=== PATIENT | male | born 1960 | race Caucasian/White ===

== ENCOUNTER 2021-12-29 08:36 | Outpatient (CLI) | payer BC, SELFPAY ==
[2021-12-29 13:01] LABS: Chloride* 104 mmol/L (96-114); Sodium* 143 mmol/L (135-149)
[2021-12-29 13:04] LABS: Blood Urea Nitrogen* 19 mg/dL (7-30); Carbon Dioxide* 28 mmol/L (20-32); Cholesterol* 158 mg/dL (90-199); Creatinine* 0.8 mg/dL (0.5-1.5); Estimated Glomerular Filt Rate 101 ml/min
[2021-12-29 13:05] LABS: Calcium* 10.1 mg/dL (8.4-10.6); Glucose* 105 mg/dL (60-115); HDL Cholesterol* 48 mg/dL (>=40); LDL Cholesterol Calculated 89 mg/dL (<100); Triglycerides* 104 mg/dL (40-149)
[2021-12-29 13:35] LABS: PSA Diagnostic* 4.14 ng/mL (0.10-4.00)
== END 2021-12-29 08:37 | disposition home or self-care (01) ==
PROVIDERS: PCP Family Medicine; Visit Provider Family Medicine
DX: Z00.00 Encounter for general adult medical examination without abnormal findings (principal); R97.20 Elevated prostate specific antigen [PSA]; E78.5 Hyperlipidemia, unspecified; R10.32 Left lower quadrant pain; Z13.1 Encounter for screening for diabetes mellitus; Z12.5 Encounter for screening for malignant neoplasm of prostate
CPT/HCPCS: 80048; 80061; 84153; 87086

== ENCOUNTER 2022-02-05 07:31 | Outpatient (CLI) | payer BC, SELFPAY ==
[2022-02-05 07:51] LABS: Creatinine* 0.9 mg/dL (0.5-1.5); Estimated Glomerular Filt Rate 98 ml/min
--- NOTE | 2022-02-05 08:00 | CRLHL7_ITS ---
For Patients: As a result of the 21st Century Cures Act, medical imaging exams and procedure reports are released immediately into your electronic medical record. You may view this report before your referring provider. If you have questions, please contact your health care provider. INDICATION: ABDOMINAL PAIN, H/X KIDNEY STONES TECHNIQUE: CT abdomen and pelvis urogram without and with 93 cc Isovue 370 intravenous contrast. Contrast images were obtained in the nephrographic and delayed phases. COMPARISON: 12/30/2009 FINDINGS: KIDNEYS: The unenhanced images demonstrate a large stone within the left renal pelvis measuring approximately 2.2 cm in the mid left kidney and 1.7 cm within the lower pole of the left kidney. Smaller stones are present within the upper pole collecting system of the left kidney measuring up to 8 millimeters. Smaller stones are present elsewhere at the corticomedullary junction measuring 3 millimeters. Punctate stones are present within the midportion of the right kidney measuring 4 millimeters and within the lower pole of the right kidney measuring 3 millimeters. The kidneys are normal in caliber and demonstrate normal uptake and excretion of IV contrast. No solid masses. Simple cortical cysts are present bilaterally measuring up to 1.5 cm. The renal collecting systems and ureters fill normally with contrast around the stones without suspicion for a transitional cell lesion. URINARY BLADDER: Multiple large bladder stones are present measuring up to 13 millimeters within the posterior/right paramidline bladder. Bladder wall thickening is present measuring up to 6 millimeters. The prostate is enlarged with lobular mass effect upon the inferior bladder. The lung bases are clear. No suspicious intrahepatic lesion. Calcified splenic granulomas. Adrenal glands normal. Normal gallbladder. Normal pancreas. Vascular calcifications. No aneurysm. No free air or free fluid. No adenopathy. No bowel obstruction or inflammatory change. No fracture. OTHER: GI tract is normal in caliber and appearance. The liver is normal in caliber and attenuation. Spleen, pancreas, and adrenal glands are normal. No mass or adenopathy. IMPRESSION: 1. Staghorn calculus left kidney. Large burden of calcification within the left renal pelvis/collecting system. No hydronephrosis. Small right renal stones. 2. Multiple large bladder stones. Bladder wall thickening. Lobular enlargement of the superior prostate. Please note that all CT scans at this facility use dose modulation, iterative reconstruction, and/or weight-based dosing when appropriate to reduce radiation dose to as low as reasonably achievable. Dictated by Emmett Obrien MD @ 02/05/2022 12:46:19 PM (Electronically Signed)
--- NOTE | 2022-02-05 11:51 | W.ANESCHARGE ---
Anesthesia Charges Start Date/Time Anesthesia Start Date: 02/05/22 Anesthesia Start Time: 11:05 Stop Date/Time Anesthesia Stop Date: 02/05/22 Anesthesia Stop Time: 11:45 Summary Emergency: No
--- NOTE | 2022-02-05 11:53 | W.ANESCHARGE ---
Anesthesia Charges Start Date/Time Anesthesia Start Date: 02/05/22 Anesthesia Start Time: 11:05 Stop Date/Time Anesthesia Stop Date: 02/05/22 Anesthesia Stop Time: 11:45 Summary Emergency: No
== END 2022-02-05 07:32 | disposition home or self-care (01) ==
LOC: CT 07:31
PROVIDERS: PCP Family Medicine; Visit Provider Surgery
DX: R10.9 Unspecified abdominal pain (principal); N20.0 Calculus of kidney; N28.89 Other specified disorders of kidney and ureter; N21.0 Calculus in bladder
CPT/HCPCS: 36415; 45385; 74178; 811; 82565; 88305; J2704; Q9967

== ENCOUNTER 2022-05-10 15:02 | Outpatient (CLI) | payer BC, SELFPAY | END 2022-05-10 15:03 | disposition home or self-care (01) | LOC: LONREF 15:03 | PROVIDERS: PCP Family Medicine; Visit Provider Nurse Practitioner Family | DX: Z01.818 Encounter for other preprocedural examination (principal); E78.5 Hyperlipidemia, unspecified | CPT/HCPCS: 80048 ==

== ENCOUNTER 2022-07-05 15:34 | Outpatient (CLI) | payer BC, SELFPAY | END 2022-07-05 15:35 | disposition home or self-care (01) | LOC: LONREF 15:34 | PROVIDERS: PCP Family Medicine; Visit Provider Nurse Practitioner Family | DX: Z01.818 Encounter for other preprocedural examination (principal) | CPT/HCPCS: 80048 ==

== ENCOUNTER 2022-12-19 12:37 | Outpatient (CLI) | payer BC, SELFPAY ==
--- NOTE | 2022-12-19 13:00 | CRLHL7_ITS ---
For Patients: As a result of the Century Cures Act, medical imaging exams and procedure reports are released immediately into your electronic medical record. You may view this report before your referring provider. If you have questions, please contact your health care provider. INDICATION: RLQ PAIN TECHNIQUE: CT abdomen and pelvis without contrast, stone protocol. COMPARISON: CT urogram February 05, 2022 FINDINGS: Kidney/ureters: Obstructing calculus within the right proximal to mid ureter, measuring 1.2 cm. This results in severe hydronephrosis and periureteral inflammation. No left-sided hydronephrosis. There are additional bilateral intrarenal calculi with the largest on the left measuring 7 mm. Unremarkable appearing bladder. Liver/gallbladder/bile ducts: The liver is normal in size, shape and attenuation. Gallbladder is normal without visualized stones or inflammation. No biliary dilatation. Spleen/pancreas/adrenal glands: The spleen, adrenal glands and pancreas are within normal limits. GI tract: No evidence of bowel obstruction or inflammation. The appendix is not discretely visualized. Vasculature: Ectatic abdominal aorta with moderate atherosclerotic cyst. Abdominal wall/omentum/peritoneum: No free air or significant free fluid. No mass or inflammation. Lymph nodes: No lymphadenopathy. Pelvis: Unremarkable pelvis. Lower chest: Unremarkable. IMPRESSION: Obstructing calculus within the right proximal to mid ureter, measuring 1.2 cm. This results in severe hydronephrosis and periureteral inflammation. Additional nonobstructing bilateral intrarenal calculi with the largest on the left measuring 7 mm. Recommend emergent urological consult. Findings discussed with Dr. Britton Fowler at 1:47 p.m.. Please note that all CT scans at this facility use dose modulation, iterative reconstruction, and/or weight-based dosing when appropriate to reduce radiation dose to as low as reasonably achievable. Dictated by Tello Najera MD @ 12/19/2022 1:49:03 PM (Electronically Signed)
== END 2022-12-19 12:38 | disposition home or self-care (01) ==
LOC: CT 12:38
PROVIDERS: PCP Family Medicine; Visit Provider Family Medicine
DX: R10.31 Right lower quadrant pain (principal); N20.1 Calculus of ureter; N20.0 Calculus of kidney
CPT/HCPCS: 74176; 87086

== ENCOUNTER 2023-04-23 08:45 | Outpatient (CLI) | payer BC, SELFPAY ==
--- OUTSIDE RECORDS SUMMARY | 2023-04-23 08:50 | XMS_ITS | Clinical Summary ---
Author Name Unknown Organization [employer] [facility] 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 0 Active omeprazole 20 mg tablet Take 20 mg by mouth once daily if needed (prn). 0 Active tamsulosin (FLOMAX) 0.4 mg capsule Take 0.4 mg by mouth at bedtime. 0 Active finasteride (PROSCAR) 5 mg tablet Take 5 mg by mouth every Saturday, Saturday and Saturday. Takes at bedtime q MWF 0 06/05/2022 Active aspirin (ECOTRIN) 81 mg enteric coated tablet Take 81 mg by mouth every Saturday, Saturday and Saturday. Takes at Bedtime q MWF 0 08/05/2022 Active acetaminophen (Tylenol Extra Strength) 500 mg tablet Take 500 mg by mouth every 6 hours if needed for Pain. Max acetaminophen dose: 4000mg in 24 hrs. 0 Active HYDROcodone-acetam inophen (5-325 mg/tablet)Indicati ons:Renal stone Take 1-2 Tablets by mouth every 6 hours if needed for Pain. Max acetaminophen dose: 4000 mg in 24 hrs. 10 Tablet 0 01/14/2023 Active Active Problems Problem Noted Date Diagnosed Date Renal stone Family History Medical History Relation Name Comments Good Health Father Good Health Mother Relation Name Status Comments Father Mother Social History Tobacco Use Types Packs/Day Years Used Date Smoking Tobacco: Every Day Cigarettes Tobacco Cessation:Ready to Q uit: Not Asked; Counseling Given: Not Answered Alcohol Use Standard Drinks/Week Comments Not Asked 0 (1 standard drink = 0.6 oz pur e alcohol) Social Connections Answer Date Recorded Frequency of Communication with Friends and Fami ly 0 12/21/2022 Financial Resource Strain Answer Date R ecorded Difficulty of Paying Living Expenses 3 12/21/2022 Difficulty of Paying Living Expenses Not on file 12/21/2022 Food Insecurity Answer Date Recorded Worried About Running Out of Food in the Last Ye ar 1 12/21/2022 Transportation Needs Answer Date Record ed Lack of Transportation (Medical) 1 12/21/2022 Housing Stability Answer Date Recorded Unable to Pay for Housing in the Last Year 1 12/21/2022 Sex and Gender Information Value Date Recorded Sex Assigned at Not on file Gender Identity Not on file Sexual Orientation Not on file Obstetrics History Last Filed Vital Signs Vital Sign Reading Time Taken Comments Blood Pressure 144/85 01/14/2023 3:40 PM [facility] Pulse 84 01/14/2023 3:40 PM [facility] Temperature 37.1 ??C (98.8 ??F) 01/14/2023 2:34 PM [facility] Respiratory Rate 16 01/14/2023 3:40 PM [facility] Oxygen Saturation 96% 01/14/2023 3:40 PM [facility] Inhaled Oxygen Concentration - - Weight 87.1 kg (192 lb 1.6 oz) 01/14/2023 12:03 PM [facility] Height 175.3 cm (5' 9) 01/14/2023 12:03 PM [facility] Body Mass Index 28.37 01/14/2023 12:03 PM [facility] Plan of Treatment Health Maintenance Due Date Last Done Comments COVID-19 vaccine series (#1) 03/30/1962 Pneumococcal series for age 6-64 (1 of 2 - PCV) 1967 Tdap 1972 Depression screening for age 12+ 1973 HIV for age 15-65 1976 BMI (ht and wt on same day) for age 18+ 09/28/1979 Hepatitis C screening for age 18-79 09/28/1979 Tetanus booster 1981 Colonoscopy through age 75 2006 Lipids for age 45-75 2006 Zoster (shingles) series for age 50+ (1 of 2) 07/20/20 12 Influenza for age 50-64 11/09/2022 Medical Devices Implanted Type Area Atmospheric Physics Professor Device Identifier Shelf Expiration Date Model / Serial / Lot Stent Uret [id number] Contour - [id number] Implanted:Qty: 1 on 01/14/2023 by Wesley Schmidt MD at [facility] Right: [facility]reter [facility] 07/23/2025 [id number] / / [id number] Explanted Type Area Atmospheric Physics Professor Device Identifier Shelf Expiration Date Model / Serial / Lot Stent Uret [id number] Contour - [id number] Implanted:Qty: 1 on 12/22/2022 by Wesley Schmidt MD at [facility] Explanted:Qty: 1 on 01/14/2023 by Wesley Schmidt MD at [facility] 07/11/2025 [id number] / / [id number] Advance Directives Latest Code Status on File Code Status Date Activated Date Inactivated Comments Full Code 01/14/2023 12:25 PM 01/14/2023 5:51 PM Question Answer Comments Code Status Discussion: Unable to Assess Preferences, Provider to review later Code Status History Code Status Date Activated Date Inactivated Comments Full Code 12/23/2022 8:54 AM 12/23/2022 1:43 PM Question Answer Comments Code Status Discussion: Reviewed Preferences Full Code 12/22/2022 8:24 AM 12/23/2022 8:54 AM Question Answer Comments Code Status Discussion: Unable to Assess Preferences, Provider to review later Full Code 12/21/2022 6:32 PM 12/22/2022 8:24 AM Question Answer Comments Code Status Discussion: Reviewed Preferences Full Code 07/31/2022 6:57 AM 08/01/2022 3:30 PM Question Answer Comments Code Status Discussion: Unable to Assess Preferences, Provider to review later Care Teams Meat Department Manager Relationship Specialty Start Date End Date Britton Fowler MD PCP - General Family Practice 05/21/22
== END 2023-04-23 08:46 | disposition home or self-care (01) ==
PROVIDERS: PCP Family Medicine; Visit Provider Family Medicine
DX: E78.5 Hyperlipidemia, unspecified (principal); N40.0 Benign prostatic hyperplasia without lower urinary tract symptoms; R97.20 Elevated prostate specific antigen [PSA]; Z13.1 Encounter for screening for diabetes mellitus
CPT/HCPCS: 80048; 80061; 84153

== ENCOUNTER 2023-12-18 11:01 | Outpatient (CLI) | payer BC, SELFPAY ==
--- OUTSIDE RECORDS SUMMARY | 2023-12-18 11:05 | XMS_ITS | Clinical Summary ---
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 Active omeprazole 20 mg tablet Take 20 mg by mouth once daily if needed (prn). Active tamsulosin (FLOMAX) 0.4 mg capsule Take 0.4 mg by mouth two times daily. Active finasteride (PROSCAR) 5 mg tablet Take 5 mg by mouth every Saturday, Saturday and Saturday. Takes at bedtime q MWF 3 Active aspirin (ECOTRIN) 81 mg enteric coated tablet Take 81 mg by mouth every Saturday, Saturday and Saturday. Takes at Bedtime q MWF 0 3 Active acetaminophen (Tylenol Extra Strength) 500 mg tablet Take 500 mg by mouth every 6 hours if needed for Pain. Max acetaminophen dose: 4000mg in 24 hrs. Active cefdinir (OMNICEF) 300 mg capsuleIndicati ons:Pyelonephri tis Take 1 Capsule (300 mg) by mouth two times daily for 14 days. 28 Capsule 4 12/23/19 24 Active HYDROcodone-ricardo taminophen (5-325 mg/tablet)Indic ations:Renal stone Take 1-2 Tablets by mouth every 6 hours if needed for Pain. Max acetaminophen dose: 4000 mg in 24 hrs. 10 Tablet 3 09/28/20 24 Discontinued(P harmacist change per medication history (E-cancel not sent)) Active Problems Problem Noted Date Diagnosed Date Hydronephrosis with urinary obstruction due to ureteral calculus 12/07/2023 Sepsis 12/07/2023 UTI (urinary tract infection) 12/07/2023 GERD (gastroesophageal reflux disease) BPH (benign prostatic hyperplasia) 12/07/2023 HLD (hyperlipidemia) 12/07/2023 JOHANN (acute kidney injury) Encounters Date Type Department Care Team Description 12/07/2023 6:37 PM CDT Anesthesia Event [address] [address] Oriana Ghosh MD Tebrake, Dean William, CRNA 12/07/2023 6:30 PM CDT - 12/07/2023 7:27 PM CDT Surgery [address] [address] Wesley Schmidt MD CYSTOSCOPY PLACEMENT URETERAL STENT 12/07/2023 2:29 PM CDT - 12/09/2023 1:35 PM CDT Hospital Encounter [address] [address] Celso Prieto MD Le, MD Dm Mae, Bishnu Shi, Wolf Sullivan, Calculus of proximal left ureter (Primary Dx); Pyuria; Leukocytosis, unspecified type; Pyelonephritis; Kidney stone Discharge Disposition: Home Self Care 12/07/2023 Travel from Last 3 Months Family History Medical History Relation Name Comments [...] Sign Reading Time Taken Comments Blood Pressure 121/82 12/09/2023 4:30 AM CDT Pulse 70 12/09/2023 4:30 AM CDT Temperature 36.3 ??C (97.3 ??F) 12/09/2023 4:30 AM CD T Respiratory Rate 18 12/09/2023 4:30 AM CDT Oxygen Saturation 94% 12/09/2023 4:30 AM CDT Inhaled Oxygen Concentration - - Weight 87.5 kg (192 lb 12.8 oz) 12/09/2023 6:18 AM CDT Height 175.3 cm (5' 9) 12/07/2023 1:36 PM CDT Body Mass Index 28.47 12/07/2023 1:36 PM CDT Plan of Treatment Upcoming Encounters Date Type Department Care Team (Latest Contact Info) Description 12/24/2023 10:03 AM CDT Hospital Encounter [facility] [address] [place] [address] Wesley Schmidt MD [facility] [place] [address] 12/24/2023 10:03 AM CDT - 12/24/2023 11:37 AM CDT Surgery [facility] [address] [place] [address] Wesley Schmidt MD [address] [place], [place] [id number] CYSTOSCOPY, LEFT URETEROSCOPY, HOLMIUM LASER LITHOTRIPSY Scheduled Procedures Name Priority Associated Diagnoses Date/Ti hi CYSTOSCOPY URETEROSCOPY LASER Elective N20.0- kidney stones 12/24/2023 10:03 AM CDT CYSTOSCOPY PLACEMENT URETERA L STENT Elective N20.0- kidney stones 12/24/2023 10:03 AM CDT Health Maintenance Due Date Last Done Comments Pneumococcal series for age 6-64 (1 of [...] series for age 50+ (1 of 2) 09/28/19 12 COVID-19 vaccine series (2023- season) 4 Influenza for age 50-64 11/10/2023 Medical Devices Implanted Type Area Pump Operator Device Identifier Shelf Expiration Date Model / Serial / Lot Stent Uret [id number] Contour - [id number] Implanted:Qty: 1 on 01/14/2023 by Wesley Schmidt MD at [facility] Right: [facility] 07/23/2025 [id number] / / [id number] Stent Uret [id number] Contour - [id number] Implanted:Qty: 1 on 12/07/2023 by Wesley Schmidt MD at [facility] Left: [facility]reter [facility] 08/06/2026 [id number] / / [id number] Explanted Type Area Pump Operator Device Identifier Shelf Expiration Date Model / Serial / Lot Stent Uret [id number] Contour - [id number] Implanted:Qty: 1 on 12/22/2022 by Wesley Schmidt MD at [facility] Explanted:Qty: 1 on 01/14/2023 by Wesley Schmidt MD at [facility] 07/11/2025 [id number] / / [id number] Procedures Procedure Name Priority Date/Time Associated Diagnosis Comments PROCALCITONIN Today 12/09/2023 8:56 AM CDT C-REACTIVE PROTEIN Today 12/09/2023 8: 56 AM CDT WHITE BLOOD COUNT Today 12/09/2023 8:5 6 AM CDT GLUCOSE METER Timed 12/08/2023 9:05 PM CDT PLATELET COUNT Early AM 12/08/2023 7:45 AM CDT HEMOGLOBIN Early AM 12/08/2023 7:45 AM CDT WHITE BLOOD COUNT Early AM 12/08/2023 7:4 5 AM CDT CREATININE Early AM 12/08/2023 7:45 AM CDT LACTATE VENOUS STAT 12/07/2023 8:11 PM CDT XR RETROGRADE PYELOGRAM W/WO KUB STAT 12/07/2023 7:03 PM CDT SUPRAGLOTTIC-LMA Routine 12/07/2023 6:51 PM CDT CYSTOSCOPY PLACEMENT URETERAL STENT 12/07/2023 6:31 PM CDT Ureteral stone CT ABDOMEN PELVIS STONE PROTOCOL WO STAT 12/07/2023 4:07 PM CDT RED CELL MORPHOLOGY STAT 12/07/2023 2 :59 PM CDT PLATELET ESTIMATE STAT 12/07/2023 2:5 9 PM CDT MANUAL DIFFERENTIAL STAT 12/07/2023 2 :59 PM CDT CBC WITH AUTO DIFFERENTIAL STAT 12/07/2023 2:59 PM CDT CBC WITH AUTO DIFFERENTIAL STAT 12/07/2023 2:59 PM CDT BASIC METABOLIC PANEL STAT 12/07/2023 2:59 PM CDT URINE CULTURE JOSE 12/07/2023 1:44 PM CDT URINALYSIS MICROSCOPIC STAT 1:44 PM CDT UA W/ SEDIMENT EXAM REFLEXED PER CRITERIA STAT 12/07/2023 1:44 PM CDT SCAN-CARDIAC STRIP 12/07/2023 12 :00 AM CDT from Last 3 Months Results * (ABNORMAL) PROCALCITONIN (12/09/2023 8:56 AM CDT) PROCALCITONIN 0.85(H) ng/ml 12/09/2023 9:47 AM CDT [facility] Blood BLOOD SPECIMEN / Unknown Venipuncture / Unknown 12/09/2023 8:56 AM CDT 12/09/2023 9:08 AM CDT Narrative [facility] - 12/09/2023 9:47 AM CDT Procalcitonin for initial assessment of Lower Respiratory Tract Infection: Results Interpretation <0.10 ng/mL Antibiotic therapy strongly discoraged. ??Indicates absent of bacterial infection. * 0.10 - 0.25 ng/mL Antibiotic therapy discouraged. ??Bacterial infection unlikely. * 0.26 - 0.50 ng/mL Antibiotic therapy encouraged. ??Bacterial infection possible. >0.50 ng/mL Antibiotic therapy strongly encouraged. ??Suggestive of presence of bacterial infection. *Antibiotic therapy should be considered regardless of PCT result if the patient is clinically unstable, is at high risk for adverse outcome, has strong evidence of bacterial pathogen, or the clinical context indicates antibiotic therapy is warranted. ??If antibiotics are withheld, reassess if symptoms persist/worsen and/or repeat PCT measurement within 6-24 hours. ? In order to assess treatment success and to support a decision to discontinue antibiotic therapy, follow up samples should be tested once every 1-2 days, based upon physician discretion taking into account patient's evolution and progress. Procalcitonin for initial assessment of severe sepsis risk: Results Interpretation <0.5 ng/ml A PCT level below 0.5 ng/ml on the first day of ICU admission is associated with a low risk for progression to severe sepsis and/or septic shock. > 2.0 ng/mL A PCT level above 2.0 ng/mL on the first day of ICU admission is associated with a high risk for progression to severe sepsis and/or septic shock. Note: Concentrations < 0.5 ng/mL do not exclude an infection, on account of localized infections (without systemic signs) which can be associated with such low concentrations, or a systemic infection in its initial stages(< 6 hours). Furthermore, increased procalcitonin can occur without infection. PCT concentrations between 0.5 and 2.0 ng/mL should be interpreted taking into account the patient's history. It is recommended to retest PCT within 6-24 hours if any concentrations < 2 ng/mL are obtained. Wolf Argueta DO SEND OUTS Performing Organization Address [facility] de Phone Number [address] [address] * (ABNORMAL) WHITE BLOOD COUNT (12/09/2023 8:56 AM CDT) Only the most recent of2 resultswithin the time period is included. [facility] Signature WHITE BLOOD COUNT 12.8(H) 4.5 - 11.0 thou/cu mm 12/09/2023 9:11 AM CDT [facility] NRBC 0.0 % 12/09/2023 9:11 AM CDT [facility] ABS NRBC 0.0 thou /cu mm 12/09/2023 9:11 AM CDT [facility] Blood BLOOD SPECIMEN / Unknown Venipuncture / Unknown 12/09/2023 8:56 AM CDT 12/09/2023 9:09 AM CDT Wolf Gallitotoña Scotten HEMATOLOGY Performing Organization Address [facility] de Phone Number [address] [address] * (ABNORMAL) C-REACTIVE PROTEIN (12/09/2023 8:56 AM CDT) C-REACTIVE PROTEIN 14.5(H) <0.5 mg/dL 12/09/2023 9:35 AM CDT [facility] Blood BLOOD SPECIMEN / Unknown Venipuncture / Unknown 12/09/2023 8:56 AM CDT 12/09/2023 9:09 AM CDT Wolf Gallito Argueta DO CHEMISTRY Performing Organization Address City/[facility] Co de Phone Number [address] [address] * (ABNORMAL) GLUCOSE METER (12/08/2023 9:05 PM CDT) GLUCOSE METER 117(H) 65 - 100 mg/dL 12/08/2023 9:14 PM CDT [facility] Blood BLOOD SPECIMEN / Unknown 12/08/2023 9:05 PM CDT 12/08/2023 9:14 PM CDT Bishnu Chaidez DO CHEMISTRY Performing Organization Address [facility] Co de Phone Number [address] [address] * PLATELET COUNT (12/08/2023 7:45 AM CDT) PLATELET COUNT 225 140 - 440 thou/cu mm 12/08/2023 8:06 AM CDT [facility] MPV 9.6 6.5 - 11.0 fL 12/08/2023 8:06 AM CDT [facility] Blood BLOOD SPECIMEN / Unknown Venipuncture / Unknown 12/08/2023 7:45 AM CDT 12/08/2023 7:50 AM CDT Richard Bender MD HEMATOLOGY Performing Organization Address City/[facility] Co de Phone Number [address] [address] * (ABNORMAL) HEMOGLOBIN (12/08/2023 7:45 AM CDT) HEMOGLOBIN 13.4(L) 13.5 - 17.5 g/dL 12/08/2023 8:06 AM CDT [facility] MCV 93 80 - 100 fL 12/08/2023 8:06 AM CDT [facility] Blood BLOOD SPECIMEN / Unknown Venipuncture / Unknown 12/08/2023 7:45 AM CDT 12/08/2023 7:50 AM CDT Richard Bender MD HEMATOLOGY Performing Organization Address City/[facility] Co de Phone Number [address] [address] * (ABNORMAL) CREATININE (12/08/2023 7:45 AM CDT) Pathologist [facility] eGFR 64(L) >90 mL/min/1.7 3m2 12/08/2023 8:15 AM CDT [facility] Comment:As of 2021, eG FR is calculated by the CKD-EPI creatinine equation without race adjustment. ??eGFR can be influenced by muscle mass, exercise, and diet. ??The reported eGFR is an estimation only and is only applicable if the renal function is stable. CREATININE 1.27(H) 0.70 - 1.20 mg/dL 12/08/2023 8:15 AM CDT [facility] Blood BLOOD SPECIMEN / Unknown Venipuncture / Unknown 12/08/2023 7:45 AM CDT 12/08/2023 7:50 AM CDT Richard Bender MD CHEMISTRY Performing Organization Address City/[facility]/ZIP Co de Phone Number [address] [address] * LACTATE VENOUS (12/07/2023 8:11 PM CDT) LACTATE,VENOUS 1.3 0.5 - 2.0 mmol/L 12/07/2023 8:33 PM CDT [facility] Blood BLOOD SPECIMEN / Unknown Venipuncture / Unknown 12/07/2023 8:11 PM CDT 12/07/2023 8:15 PM CDT Richard Bender MD CHEMISTRY [facility] [address] [place] [address] * XR RETROGRADE PYELOGRAM W/WO KUB (12/07/2023 7:03 PM CDT) Anatomical Region Laterality Modality KIDNEYS, Abdomen Digital Radiogr aphy 12/07/2023 7:31 PM CDT Narrative 12/07/2023 7:31 PM CDT For Patients: ??As a result of the Cures Act, medical imaging exams and procedure reports are released immediately into your electronic medical record. ??You may view this report before your referring provider. ??If you have questions, please contact your health care provider. Indication: Flank pain. Technique: Intraoperative fluoroscopic assistance, 1 view. Comparison: CT abdomen and pelvis from the same day. Findings/Impression: A single spot fluoroscopic image demonstrates a left ureteral stent appearing in good position. The tip of a cystoscope is noted in the lower pelvis. 30 seconds of fluoroscopy time was utilized for this procedure. Dictated by Angel Hill MD @ 12/07/2023 7:31:10 PM (Electronically Signed) Procedure Note Angel Hill MD - 12/07/2023 For Patients: As a result of the Cures Act, medical imagingexams and procedure reports are released immediately into your electronicmedical record. You may view this report before your referring provider.If you have questions, please contact your health care provider. Indication: Flank pain. Technique: Intraoperative fluoroscopic assistance, 1 view. Comparison: CT abdomen and pelvis from the same day. Findings/Impression: A single spot fluoroscopic image demonstrates a left ureteral stentappearing in good position. The tip of a cystoscope is noted in the lowerpelvis. 30 seconds of fluoroscopy time was utilized for this procedure. Dictated by Angel Hill MD @ 12/07/2023 7:31:10 PM (Electronically Signed) Wesley Schmidt MD GENERAL IMAGIN G * HCHG MASK PR5 (12/07/2023 6:51 PM CDT) Narrative Jose Queen CRNA - 12/07/2023 6:51 PM CDT Jose Queen CRNA ? 12/07/2023 ??6:51 PM Procedure: Supraglottic Patient location during procedure: OR Supraglottic Airway Properties Mask Ventilation: easy Type: unique Tube Size: 5 Insertion Attempts: 1 Placement Verification: auscultation and CO2 detection Assessment Assessment: atraumatic and dentition unchanged Cuff Volume: 5 Oriana Ghosh MD ANESTHESIA PX NOTE ORDERABLES * CT ABDOMEN PELVIS STONE PROTOCOL WO (12/07/2023 4:07 PM CDT) Anatomical Region Laterality Modality Abdomen, Pelvis, AORTA, LIVER, SPLEEN Computed Tomography 12/07/2023 4:39 PM CDT Impressions 12/07/2023 4:39 PM CDT 1. Moderate left hydronephrosis with 3 adjacent stones in the left mid ureter measuring up to 1 cm. Please note that all CT scans at this facility use dose modulation, iterative reconstruction, and/or weight-based dosing when appropriate to reduce radiation dose to as low as reasonably achievable. Dictated by Cris Randall MD @ 12/07/2023 4:39:59 PM (Electronically Signed) Narrative 12/07/2023 4:39 PM CDT For Patients: ??As a result of the Century Cures Act, medical imaging exams and procedure reports are released immediately into your electronic medical record. ??You may view this report before your referring provider. ??If you have questions, please contact your health care provider. INDICATION: Flank pain TECHNIQUE: CT abdomen and pelvis without contrast. COMPARISON: CT 08/01/2022 FINDINGS: Lower chest: Unremarkable. Liver: Normal in size and attenuation. No suspicious masses. Gallbladder and bile ducts: No stones or inflammation. No biliary dilatation. Pancreas: Unremarkable. No mass or inflammation. Spleen: Splenic granulomas. Adrenal glands: Normal in size. No nodules. Kidneys: Nonobstructing left-sided renal calculi as well as on the right. No hydronephrosis on the right. Moderate left hydronephrosis and hydroureter with 3 adjacent left mid renal calculi. Proximally 4 millimeter stone with an adjacent 1 centimeters stone followed by an additional 9 millimeter stone. GI tract: Small hiatal hernia. Gaseous distention of the colon the bowel otherwise is unremarkable. Normal appendix. Vasculature: Abdominal aorta is normal in caliber. Lymph nodes: No lymphadenopathy. Peritoneum/Abdominal Wall: Small fat containing inguinal hernias. Pelvis: Unremarkable. No pelvic masses. Bones: Unremarkable for age. Procedure Note Cris Randall MD - 12/07/2023 For Patients: As a result of the Century Cures Act, medical imagingexams and procedure reports are released immediately into your electronicmedical record. You may view this report before your referring provider.If you have questions, please contact your health care provider. INDICATION: Flank pain TECHNIQUE: CT abdomen and pelvis without contrast. COMPARISON: CT 08/01/2022 FINDINGS: Lower chest: Unremarkable. Liver: Normal in size and attenuation. No suspicious masses. Gallbladder and bile ducts: No stones or inflammation. No biliarydilatation. Pancreas: Unremarkable. No mass or inflammation. Spleen: Splenic granulomas. Adrenal glands: Normal in size. No nodules. Kidneys: Nonobstructing left-sided renal calculi as well as on the right.No hydronephrosis on the right. Moderate left hydronephrosis andhydroureter with 3 adjacent left mid renal calculi. Proximally 4millimeter stone with an adjacent 1 centimeters stone followed by anadditional 9 millimeter stone. GI tract: Small hiatal hernia. Gaseous distention of the colon the bowelotherwise is unremarkable. Normal appendix. Vasculature: Abdominal aorta is normal in caliber. Lymph nodes: No lymphadenopathy. Peritoneum/Abdominal Wall: Small fat containing inguinal hernias. Pelvis: Unremarkable. No pelvic masses. Bones: Unremarkable for age. IMPRESSION: 1. Moderate left hydronephrosis with 3 adjacent stones in the left midureter measuring up to 1 cm. Please note that all CT scans at this facility use dose modulation,iterative reconstruction, and/or weight-based dosing when appropriate toreduce radiation dose to as low as reasonably achievable. Dictated by Cris Randall MD @ 12/07/2023 4:39:59 PM (Electronically Signed) Celso Prieto MD CT * (ABNORMAL) CBC WITH AUTO DIFFERENTIAL (12/07/2023 2:59 PM CDT) WHITE BLOOD COUNT 21.4(H) 4.5 - 11.0 thou/cu mm 12/07/2023 3:32 PM CDT [facility] RED BLOOD COUNT 4.99 4.30 - 5.90 mil/cu mm 12/07/2023 3:32 PM CDT [facility] HEMOGLOBIN 15.5 13.5 - 17.5 g/dL 12/07/2023 3:32 PM CDT [facility] HEMATOCRIT 45.6 37.0 - 53.0 % 12/07/2023 3:32 PM CDT [facility] MCV 91 80 - 100 fL 12/07/2023 3:32 PM CDT [facility] MCH 31.1 26.0 - 34.0 pg 12/07/2023 3:32 PM CDT [facility] MCHC 34.0 32.0 - 36.0 g/dL 12/07/2023 3:32 PM CDT [facility] RDW 14.4 11.5 - 15.5 % 12/07/2023 3:32 PM CDT [facility] PLATELET COUNT 250 140 - 440 thou/cu mm 12/07/2023 3:32 PM CDT [facility] MPV 9.4 6.5 - 11.0 fL 12/07/2023 3:32 PM CDT [facility] NRBC 0.0 % 12/07/2023 3:32 PM CDT [facility] ABS NRBC 0.0 thou /cu mm 12/07/2023 3:32 PM CDT [facility] Blood BLOOD SPECIMEN / Unknown IV Start / Unknown 12/07/2023 2:59 PM CDT 12/07/2023 3:02 PM CDT Celso Prieto MD HEMATOLOGY [facility] [address] [place] [address] * (ABNORMAL) RED CELL MORPHOLOGY (12/07/2023 2:59 PM CDT) ELLIPTOCYTES Few 12/07/2023 3:31 PM CDT [facility] POLYCHROMASIA Slight 12/07/2023 3:31 PM CDT [facility] RBC COMMENT Present(A) RBC morphology appears normal, RBC morphology within normal limits for newborns. 12/07/2023 3:31 PM CDT [facility] WBC TOXIC GRANULATION Present 12/07/2023 3:31 PM CDT [facility] Blood BLOOD SPECIMEN / Unknown IV Start / Unknown 12/07/2023 2:59 PM CDT 12/07/2023 3:02 PM CDT Celso Prieto MD HEMATOLOGY Performing Organization Address City/[facility]/ZIP Co de Phone Number [address] [address] * PLATELET ESTIMATE (12/07/2023 2:59 PM CDT) PLATELET ESTIMATE Adequate Adequate, No estimate 12/07/2023 3:31 PM CDT [facility] Blood BLOOD SPECIMEN / Unknown IV Start / Unknown 12/07/2023 2:59 PM CDT 12/07/2023 3:02 PM CDT Celso Prieto MD HEMATOLOGY [address] [address] * (ABNORMAL) MANUAL DIFFERENTIAL (12/07/2023 2:59 PM CDT) % NEUTROPHILS 87.0 % 12/07/2023 3:31 PM CDT [facility] % LYMPHOCYTES 5.0 % 12/07/2023 3:31 PM CDT [facility] % MONOCYTES 7.0 % 12/07/2023 3:31 PM CDT [facility] % EOSINOPHILS 0.0 % 12/07/2023 3:31 PM CDT [facility] % BASOPHILS 1.0 % 12/07/2023 3:31 PM CDT [facility] NEUTROPHILS ABSOLUTE 18.6(H) 1.7 - 7.0 thou/cu mm 12/07/2023 3:31 PM CDT [facility] LYMPHOCYTES ABSOLUTE 1.1 0.9 - 2.9 thou/cu mm 12/07/2023 3:31 PM CDT [facility] MONOCYTES ABSOLUTE 1.5(H) <0.9 thou/cu mm 12/07/2023 3:31 PM CDT [facility] EOSINOPHILS ABSOLUTE 0.0 <0.5 thou/cu mm 12/07/2023 3:31 PM CDT [facility] BASOPHILS ABSOLUTE 0.2 <0.3 thou/cu mm 12/07/2023 3:31 PM CDT [facility] Blood BLOOD SPECIMEN / Unknown IV Start / Unknown 12/07/2023 2:59 PM CDT 12/07/2023 3:02 PM CDT Celso Prieto MD HEMATOLOGY [facility] [address] [place] [address] * (ABNORMAL) BASIC METABOLIC PANEL (12/07/2023 2:59 PM CDT) SODIUM 137 136 - 145 mmol/L 12/07/2023 3:23 PM CDT [facility] POTASSIUM 4.1 3.5 - 5.1 mmol/L 12/07/2023 3:23 PM CDT [facility] CHLORIDE 99 98 - 107 mmol/L 12/07/2023 3:23 PM CDT [facility] CO2,TOTAL 25 22 - 29 mmol/L 12/07/2023 3:23 PM CDT [facility] ANION GAP 13 5 - 18 12/07/2023 3:23 PM CDT [facility] GLUCOSE 135(H) 70 - 99 mg/dL 12/07/2023 3:23 PM CDT [facility] CALCIUM 10.0 8.8 - 10.2 mg/dL 12/07/2023 3:23 PM CDT [facility] BUN 21 8 - 23 mg/dL 12/07/2023 3:23 PM CDT [facility] CREATININE 1.67(H) 0.70 - 1.20 mg/dL 12/07/2023 3:23 PM CDT [facility] BUN/CREAT RATIO 13 10 - 20 4 3:23 PM CDT [facility] eGFR 46(L) >90 mL/min/1.7 3m2 12/07/2023 3:23 PM CDT [facility] Comment:As of 2021, eG FR is calculated by the CKD-EPI creatinine equation without race adjustment. ??eGFR can be influenced by muscle mass, exercise, and diet. ??The reported eGFR is an estimation only and is only applicable if the renal function is stable. Blood BLOOD SPECIMEN / Unknown IV Start / Unknown 12/07/2023 2:59 PM CDT 12/07/2023 3:02 PM CDT [place] [address] * (ABNORMAL) URINALYSIS MICROSCOPIC (12/07/2023 1:44 PM CDT) RBC 51-100(A) 0-2, None Seen /HPF 12/07/2023 2:02 PM CDT [facility] WBC >100(A) 0-2, 3-5, None Seen /HPF 12/07/2023 2:02 PM CDT [facility] BACTERIA Few None Seen, Rare, Few Bacteria/H PF 12/07/2023 2:02 PM CDT [facility] EPITHELIAL CELLS Few None Seen, Few Epi/HPF 12/07/2023 2:02 PM CDT [facility] WHITE CELL CLUMPS Present(A) (none) 12/07/2023 2:02 PM CDT [facility] Urine URINE SPECIMEN / Unknown Non-Blood / Unknown 12/07/2023 1:44 PM CDT 12/07/2023 1:47 PM CDT Stf Ed Triage URINE [facility] [address] [place] [address] * URINE CULTURE (12/07/2023 1:44 PM CDT) CULTURE No growth (<1,000 CFU/mL) 12/08/2023 7:06 PM CDT [facility] Urine URINE SPECIMEN / Unknown Non-Blood / Unknown 12/07/2023 1:44 PM CDT 12/07/2023 1:47 PM CDT Celso Prieto MD MICROBIOLOGY Performing Organization Address City/[facility]/ZIP Co de Phone Number [facility] [address] [place] [address], [place] * (ABNORMAL) UA W/ SEDIMENT EXAM REFLEXED PER CRITERIA (12/07/2023 1:44 PM CDT) COLOR Yellow Yellow Color 12/07/2023 1:54 PM CDT [facility] CLARITY Clear Clear Clarity 12/07/2023 1:54 PM CDT [facility] SPECIFIC GRAVITY,URINE 1.015 1.010, 1.015, 1.020, 1.025 12/07/2023 1:54 PM CDT [facility] PH,URINE 6.0 6.0, 7.0, 8.0, 5.5, 6.5, 7.5, 8.5 12/07/2023 1:54 PM CDT [facility] UROBILINOGEN, QUALITATIVE Normal Normal EU/dl 12/07/2023 1:54 PM CDT [facility] PROTEIN, URINE 30(A) Negative mg/dL 12/07/2023 1:54 PM CDT [facility] GLUCOSE, URINE Negative Negative mg/dL 12/07/2023 1:54 PM CDT [facility] KETONES,URINE Negative Negative mg/dL 12/07/2023 1:54 PM CDT [facility] BILIRUBIN,URI NE Negative Negative 12/07/2023 1:54 PM CDT [facility] OCCULT BLOOD,URINE Large(A) Negative 12/07/2023 1:54 PM CDT [facility] NITRITE Negative Negative 12/07/2023 1:54 PM CDT [facility] LEUKOCYTE ESTERASE Moderate(A) Negative 12/07/2023 1:54 PM CDT [facility] Urine URINE SPECIMEN / Unknown Non-Blood / Unknown 12/07/2023 1:44 PM CDT 12/07/2023 1:47 PM CDT Stf Ed Triage URINE [facility] [address] [place] [address] * SCAN-CARDIAC STRIP (12/07/2023 12:00 AM CDT) Narrative 12/07/2023 12:00 AM CDT Ordered by an unspecified provider. Other Clinical Staff OTHER from Last 3 Months Advance Directives * Full Code (Latest Code Status on File) Date Activated Date Inactivated Comments 12/07/2023 8:18 PM 12/09/2023 3:45 PM Question Answer Comments Code Status Discussion: Reviewed Preferences * Full Code Date Activated Date Inactivated Comments 01/14/2023 12:25 PM 01/14/2023 5:51 PM Question Answer Comments Code Status Discussion: Unable to Assess Preferences, Provider to review later * Full Code Date Activated Date Inactivated Comments 12/23/2022 8:54 AM 12/23/2022 1:43 PM Question Answer Comments Code Status Discussion: Reviewed Preferences * Full Code Date Activated Date Inactivated Comments 12/22/2022 8:24 AM 12/23/2022 8:54 AM Question Answer Comments Code Status Discussion: Unable to Assess Preferences, Provider to review later * Full Code Date Activated Date Inactivated Comments 12/21/2022 6:32 PM 12/22/2022 8:24 AM Question Answer Comments Code Status Discussion: Reviewed Preferences 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
== END 2023-12-18 11:02 | disposition home or self-care (01) ==
PROVIDERS: PCP Family Medicine; Visit Provider Family Medicine
DX: Z01.818 Encounter for other preprocedural examination (principal); E78.5 Hyperlipidemia, unspecified; R97.20 Elevated prostate specific antigen [PSA]; Z12.5 Encounter for screening for malignant neoplasm of prostate
CPT/HCPCS: 80048; 80061; G0103

== ENCOUNTER 2024-11-04 08:21 | Outpatient (CLI) | payer BC, SELFPAY | END 2024-11-04 08:22 | disposition home or self-care (01) | PROVIDERS: PCP Family Medicine; Visit Provider Family Medicine | DX: E78.2 Mixed hyperlipidemia (principal); N40.0 Benign prostatic hyperplasia without lower urinary tract symptoms; R97.20 Elevated prostate specific antigen [PSA]; Z12.5 Encounter for screening for malignant neoplasm of prostate | CPT/HCPCS: 80048; 80061; G0103 ==